=== PATIENT | female | born 1985 | race Caucasian/White ===

== ENCOUNTER → 2016-05-20 | Outpatient (CLI) | payer OTHER ==
[2016-05-20 14:56] LABS: BASO % 1.2 %; BASO ABS # 0.04 K/uL (0-0.2); COMPLETE YES; EOS % 0.9 %; HEMATOCRIT 42.4 % (37-47); IG% 0.3 %; LYMPH % 37.5 %; LYMPH ABS # 1.24 K/uL (1.2-3.4); MEAN CELL VOLUME 102.2 fL (80-100); MEAN CORPUSCULAR HEMOGLOBIN 34.7 pg (25-34); MEAN PLATELET VOLUME 9.8 fL (7.4-10.4); MONO % 12.1 %; PLATELET COUNT 237 K/uL (130-400); RED BLOOD COUNT 4.15 M/uL (4.2-5.4); WHITE BLOOD COUNT 3.31 K/uL (4.8-10.8)
[2016-05-20 15:12] LABS: ALB/GLOB RATIO 0.9 (0.9-2); ALKALINE PHOSPHATASE 45 U/L (45-117); ALT/SGPT 27 U/L (12-78); AST/SGOT 22 U/L (15-37); BLOOD UREA NITROGEN 13 mg/dl (7-18); CALCIUM 8.8 mg/dl (8.5-10.1); CARBON DIOXIDE 23 mmol/L (21-32); CHLORIDE 107 mmol/L (98-107); CHOLESTEROL 165 mg/dl (0-200); CHOLESTEROL/HDL RATIO 3.9; CREATININE 0.79 mg/dl (0.60-1.20); GLUCOSE 90 mg/dl (70-99); HDL CHOLESTEROL 42 mg/dl; LDL CHOLESTEROL CALCULATED 107 mg/dl; POTASSIUM 4.2 mmol/L (3.5-5.1); SODIUM 141 mmol/L (136-145); TRIGLYCERIDES 82 mg/dl (0-150); VERY LOW DENSITY LIPOPROT CALC 16 mg/dl
== END | disposition home or self-care (01) ==
LOC: C.LABSPEC 09:24
PROVIDERS: ATTEND Family Medicine
DX: Z00.00 Encounter for general adult medical examination without abnormal findings (principal)

== ENCOUNTER → 2016-10-25 | Outpatient (CLI) | payer OTHER ==
[2016-10-25 14:33] LABS: BASO % 0.8 %; BASO ABS # 0.03 K/uL (0-0.2); COMPLETE YES; EOS % 1.7 %; HEMATOCRIT 45.1 % (37-47); LYMPH % 32.4 %; LYMPH ABS # 1.15 K/uL (1.2-3.4); MEAN CELL VOLUME 104.4 fL (80-100); MEAN CORPUSCULAR HEMOGLOBIN 35.2 pg (25-34); MEAN CORPUSCULAR HGB CONC 33.7 g/dl (32-36); MEAN PLATELET VOLUME 9.5 fL (7.4-10.4); MONO % 9.9 %; NEUT % 55.2 %; PLATELET COUNT 239 K/uL (130-400); RED BLOOD COUNT 4.32 M/uL (4.2-5.4); WHITE BLOOD COUNT 3.55 K/uL (4.8-10.8)
[2016-10-25 14:46] LABS: ALT/SGPT 26 U/L (12-78); BLOOD UREA NITROGEN 15 mg/dl (7-18); BUN/CREATININE RATIO 17.4 (10-20); CALCIUM 9.1 mg/dl (8.5-10.1); CARBON DIOXIDE 28 mmol/L (21-32); CHLORIDE 108 mmol/L (98-107); CHOLESTEROL 175 mg/dl (0-200); CREATININE 0.88 mg/dl (0.60-1.20); GLUCOSE 79 mg/dl (70-99); POTASSIUM 4.1 mmol/L (3.5-5.1); SODIUM 141 mmol/L (136-145); TRIGLYCERIDES 143 mg/dl (0-150); VERY LOW DENSITY LIPOPROT CALC 29 mg/dl
[2016-10-25 14:55] LABS: ALB/GLOB RATIO 0.9 (0.9-2); ALKALINE PHOSPHATASE 43 U/L (45-117); AST/SGOT 20 U/L (15-37); CHOLESTEROL/HDL RATIO 4.3; HDL CHOLESTEROL 41 mg/dl; LDL CHOLESTEROL CALCULATED 105 mg/dl
== END | disposition home or self-care (01) ==
LOC: C.LABSPEC 13:58
PROVIDERS: ATTEND Family Medicine
DX: R63.5 Abnormal weight gain (principal); Q90.9 Down syndrome, unspecified

== ENCOUNTER 2017-06-08 14:19 | Observation (INO) | payer OTHER ==
[~2017-06-08] VITALS: Ht 160 cm; Wt 111.2 kg
[2017-06-08] MEDS ORDERED: SODIUM CHLORIDE 0.9% 1000ML 1,000 ML IV STA (15:01)
--- NOTE | 2017-06-08 15:03 | EMERGENCY ROOM VISIT NOTE ---
History Report prepared by Zenia: Davon Mayorga Under the Supervision of: Dr. Markus Pritchett M.D. First contact with patient: 14:53 Chief Complaint: OTHER COMPLAINT Stated Complaint: ACTED LIKE PASSING OUT, BROKE OUT IN SWEAT, EXTREM History of Present Illness The patient is a 31 year old female who presents to the Emergency Room with complaints of multiple episodes of syncope occurring today. Per mom, the patient was walking down the stairs today and had an episode that seemed like she was going to pass out. She notes that the patient made it about [address] stairs, and then leaned over and became "dazed." She reports that the patient was not able to respond immediately following her initial episode. She states that the patient also became SOB and diaphoretic. She notes that the patient then drank some water and sat down for 20 minutes before feeling better. She reports that the patient then went back up the stairs and had a similar episode. She states that the patient had similar symptoms a year ago. The patient notes that she does not remember passing out. She also complains of a headache but denies any nausea, vomiting, diarrhea, and fever. Per mom, the patient originally said that she had chest pain but points to her head when asked where the pain is. She reports that the patient has a history of down syndrome but does not have a history of seizures. Source of History: patient, parent Onset: today Position: head Quality: other (LOC) Timing: other (multiple episodes) Associated Symptoms: + headache, No fevers, No nausea, No vomiting, No diarrhea Note: Per mom, the patient was in a "daze" and was not able to respond during her episodes. The patient states that she does not remember losing consciousness. Review of Systems See HPI for pertinent positives & negatives. A total of 10 systems reviewed and were otherwise negative. Past Medical & Surgical Medical Problems: (1) Down syndrome Family History No pertinent family history stated. Social History Smoking Status: Never Smoker Marital Status: single Housing Status: lives with family Occupation Status: unemployed Current/Historical Medications No Active Prescriptions or Reported Meds Allergies Coded Allergies: NO KNOWN DRUG ALLERGIES (Verified Allergy, Unknown, ., 06/08/17) Physical Exam Vital Signs Date Time Temp Pulse Resp B/P (MAP) Pulse Ox O2 Delivery O2 Flow Rate FiO2 06/08/17 18:33 107 18 111/83 96 Room Air 06/08/17 17:32 64 116/79 78 107/85 87 106/72 06/08/17 17:32 64 20 116/79 06/08/17 16:13 71 06/08/17 15:21 98 Room Air 06/08/17 15:21 98 Room Air 06/08/17 14:41 37.0 79 18 111/63 98 Room Air Physical Exam GENERAL: Awake, alert, well-appearing, in no acute distress HENT: Normocephalic, atraumatic. Oropharynx unremarkable. EYES: Normal conjunctiva. Sclera non-icteric. NECK: Supple. No nuchal rigidity. FROM. No JVD. RESPIRATORY: Clear to auscultation. CARDIAC: Regular rate, normal rhythm. Extremities warm and well perfused. Pulses equal. ABDOMEN: Soft, non-distended. No tenderness to palpation. No rebound or guarding. No masses. RECTAL: Deferred. MUSCULOSKELETAL: Chest examination reveals no tenderness. The back is symmetrical on inspection without obvious abnormality. There is no CVA tenderness to palpation. No joint edema. LOWER EXTREMITIES: Calves are equal size bilaterally and non-tender. No edema. No discoloration. NEURO: Normal sensorium. No sensory or motor deficits noted. SKIN: No rash or jaundice noted. Medical Decision & Procedures ER Provider Diagnostic Interpretation: Radiology results as stated below per my review and radiologist interpretation: CHEST ONE VIEW PORTABLE FINDINGS: Cardiomediastinal silhouette top normal in size. Bronchial wall thickening suggested. Mildly low lung volumes with hypoventilatory changes. No other focal opacity. No large effusion or pneumothorax. Osseous structures normal. Upper abdomen normal. IMPRESSION: 1. Mildly low lung volumes with hypoventilatory changes. 2. Bronchial wall thickening could suggest bronchitis or reactive airways. Electronically signed by: Geraldo Mcgraw M.D. 06/08/2017 3:47 PM CHEST COMBO ANGIO DISSECTION FINDINGS: Victims Advocate Clerk/Specialist topogram: Unremarkable. Vasculature: The study is suboptimal for the assessment of the aorta secondary to respiratory and cardiac motion artifact. Precontrast imaging demonstrates no evidence of intramural hematoma. Postcontrast imaging demonstrates no evidence of dissection, penetrating ulcer, or aneurysm. Four-vessel aortic arch with patent origins of the branch vessels Allowing for timing of the contrast bolus, no gross evidence of a filling defect within the pulmonary arteries to suggest embolus. Main pulmonary artery is not enlarged. No flattening of the interventricular septum. No intracardiac filling defect. No reflux of contrast into the hepatic veins. Remaining chest: On soft tissue windows, normal thyroid and thoracic inlet. No axillary, supraclavicular, hilar, or mediastinal lymphadenopathy. Normal heart size. No pericardial or pleural effusion. Upper abdomen normal. On lung windows, allowing for extensive respiratory motion artifact, extensive mosaic attenuation at the lung bases suggests small airways disease. No focal nodule or infiltrate. Central airways patent. On bone windows, normal osseous structures. IMPRESSION: 1. Allowing for significant respiratory and cardiac motion artifact, no evidence of acute aortic injury. 2. Extensive small airways disease at the lung bases. Electronically signed by: Geraldo Mcgraw M.D. 06/08/2017 5:32 PM Laboratory Results 06/08/17 15:50 Red Blood Count 4.35, Mean Corpuscular Volume 103.4, Mean Corpuscular Hemoglobin 34.9, Mean Corpuscular Hemoglobin Concent 33.8, Mean Platelet Volume 9.6, Neutrophils (%) (Auto) 71.1, Lymphocytes (%) (Auto) 20.3, Monocytes (%) ( Auto) 6.5, Eosinophils (%) (Auto) 1.4, Basophils (%) (Auto) 0.7, Neutrophils # ( Auto) 3.96, Lymphocytes # (Auto) 1.13, Monocytes # (Auto) 0.36, Eosinophils # ( Auto) 0.08, Basophils # (Auto) 0.04 06/08/17 15:50 Test 06/08/17 15:50 06/08/17 16:20 06/08/17 18:25 White Blood Count 5.57 K/uL (4.8-10.8) Red Blood Count 4.35 M/uL (4.2-5.4) Hemoglobin 15.2 g/dL (12.0-16.0) Hematocrit 45.0 % (37-47) Mean Corpuscular Volume 103.4 fL (80-100) Mean Corpuscular Hemoglobin 34.9 pg (25-34) Mean Corpuscular Hemoglobin Concent 33.8 g/dl (32-36) Platelet Count 209 K/uL (130-400) Mean Platelet Volume 9.6 fL (7.4-10.4) Neutrophils (%) (Auto) 71.1 % Lymphocytes (%) (Auto) 20.3 % Monocytes (%) (Auto) 6.5 % Eosinophils (%) (Auto) 1.4 % Basophils (%) (Auto) 0.7 % Neutrophils # (Auto) 3.96 K/uL (1.4-6.5) Lymphocytes # (Auto) 1.13 K/uL (1.2-3.4) Monocytes # (Auto) 0.36 K/uL (0.11-0.59) Eosinophils # (Auto) 0.08 K/uL (0-0.5) Basophils # (Auto) 0.04 K/uL (0-0.2) RDW Standard Deviation 51.2 fL (36.4-46.3) RDW Coefficient of Variation 13.6 % (11.5-14.5) Immature Granulocyte % (Auto) 0.0 % Immature Granulocyte # (Auto) 0.00 K/uL (0.00-0.02) Anion Gap 9.0 mmol/L (3-11) Est Creatinine Clear Calc Drug Dose 103.1 ml/min Estimated GFR () 93.2 Estimated GFR (Non- 80.4 BUN/Creatinine Ratio 15.3 (10-20) Calcium Level 8.3 mg/dl (8.5-10.1) Magnesium Level 2.0 mg/dl (1.8-2.4) Total Bilirubin 0.4 mg/dl (0.2-1) Direct Bilirubin < 0.1 mg/dl (0-0.2) Aspartate Amino Transf (AST/SGOT) 20 U/L (15-37) Alanine Aminotransferase (ALT/SGPT) 33 U/L (12-78) Alkaline Phosphatase 47 U/L (45-117) Creatine Kinase MB < 0.5 ng/ml (0.5-3.6) Creatine Kinase MB Ratio (0-3.0) Troponin I < 0.015 ng/ml (0-0.045) Total Protein 7.5 gm/dl (6.4-8.2) Albumin 3.3 gm/dl (3.4-5.0) Bedside Troponin I 0.030 ng/ml (0-0.045) Labs reviewed by ED physician. Medications Administered Medications (Trade) Dose Ordered Sig/Bharath Route Start Time Stop Time Status Last Admin Dose Admin Sodium Chloride 1,000 ml @ 999 mls/hr Q1H1M STAT IV 06/08/17 15:01 06/08/17 16:01 DC 06/08/17 16:23 999 MLS/HR Albuterol Sulfate (Ventolin 0.083% 2.5MG/3ML Neb) 2.5 mg NOW STAT INH 06/08/17 15:50 06/08/17 15:51 DC 06/08/17 16:38 2.5 MG Albuterol Sulfate (Ventolin 0.083% 2.5MG/3ML Neb) 2.5 mg NOW STAT INH 06/08/17 17:41 06/08/17 17:42 DC 06/08/17 17:52 2.5 MG ECG Per My Interpretation Indication: syncope Rate (beats per minute): 66 Rhythm: normal sinus Findings: no acute ischemic change, no ectopy, other (Early repolarization) ED Course 1455: Past medical records reviewed. The patient was evaluated in room B11. A complete history and physical examination was performed. 1501: Sodium Chloride 1000 ml @ 999 mls/hr 1550: Albuterol Sulfate 2.5mg INH 1608: [place] [facility] [place] suggests to have an echo done. 1741: Albuterol Sulfate 2.5mg INH 1816: Upon reexamination the patient is stable. I discussed results and treatment plan with the patient. She and her mother verbalize agreement and understanding. I spoke with [place]. Andrews [place] [facility] [place]. The patient will be evaluated for further management. Medical Decision Differential diagnosis: Etiologies such as vasovagal event, infection, hypoglycemia, electrolyte abnormalities, cardiac sources, intracerebral event, toxicologic, neurologic, as well as others were entertained. This is a 31-year-old female who presents the emergency department complaining of passing out 3 times. Patient has a history of Down syndrome and has had an episode previously where she was walking downstairs and passed out. Today she had 3 episodes back to back. Patient and mother report that she is eating normally today. The patient's original EKG was concerning for STEMI and it was difficult to ascertain if the patient was having chest pain as she reports chest pain but points to her head. Because of this I did contact cardiology who had a stat echo performed. There is no evidence of abnormal wall abnormality. The patient also had a CAT scan dissection study which did not show any evidence of dissection. I did discuss my case with the patient's mother who asked that the patient be admitted at least for observation. Did discuss the case with the hospitalist service. Medication Reconcilliation Current Medication List: was personally reviewed by me Blood Pressure Screening Patient's blood pressure: Normal blood pressure Blood pressure disposition: Did not require urgent referral Consults Time Called: 1604 Consulting Physician: Dr. Gary Luis CardiologyJOSSELIN Returned Call: 1608 I spoke to JOSSELIN Amador. He suggests to have an echo done. Additional Consults: Time Called: 1814 Consulted Physician: JOSSELIN Donovan Returned Call: 1816 Additional Comments: I discussed the patient's case with JOSSELIN Maki, He has agreed to evaluate the patient for further management and care. Impression Primary Impression: Syncope Scribe Attestation The scribe's documentation has been prepared under my direction and personally reviewed by me in its entirety. I confirm that the note above accurately reflects all work, treatment, procedures, and medical decision making performed by me. Departure Information Dispostion Being Evaluated By Hospitalist Prescriptions No Active Prescriptions or Reported Meds Referrals [facility]on [facility]. [facility] ([facility] Patient Instructions My [facility] Problem Qualifiers Primary Impression: Syncope Syncope type: unspecified Qualified Codes: R55 - Syncope and collapse
--- NOTE | 2017-06-08 15:48 | DIAGNOSTIC IMAGING REPORT ---
CHEST ONE VIEW PORTABLE CLINICAL HISTORY: 31 years-old Female presenting with Pt c/o SOB. TECHNIQUE: Portable upright AP view of the chest was obtained. COMPARISON: None. FINDINGS: Cardiomediastinal silhouette top normal in size. Bronchial wall thickening suggested. Mildly low lung volumes with hypoventilatory changes. No other focal opacity. No large effusion or pneumothorax. Osseous structures normal. Upper abdomen normal. IMPRESSION: 1. Mildly low lung volumes with hypoventilatory changes. 2. Bronchial wall thickening could suggest bronchitis or reactive airways. Electronically signed by: Geraldo Mcgraw M.D. 06/08/2017 3:47 PM Dictated Date/Time: 06/08/2017 3:46 PM
[2017-06-08] MEDS ORDERED: ALBUTEROL 0.083% NEBU SOLN 3 ML VIAL INH STA ×3 (15:50→19:48)
[2017-06-08 16:08] LABS: BASO % 0.7 %; BASO ABS # 0.04 K/uL (0-0.2); EOS % 1.4 %; EOS ABS # 0.08 K/uL (0-0.5); HEMOGLOBIN 15.2 g/dL (12.0-16.0); LYMPH % 20.3 %; LYMPH ABS # 1.13 K/uL (1.2-3.4); MEAN CELL VOLUME 103.4 fL (80-100); MEAN CORPUSCULAR HEMOGLOBIN 34.9 pg (25-34); MEAN CORPUSCULAR HGB CONC 33.8 g/dl (32-36); MEAN PLATELET VOLUME 9.6 fL (7.4-10.4); MONO % 6.5 %; MONO ABS # 0.36 K/uL (0.11-0.59); NEUT % 71.1 %; NEUT ABS # 3.96 K/uL (1.4-6.5); PLATELET COUNT 209 K/uL (130-400); RED CELL DISTRIBUTION WIDTH CV 13.6 % (11.5-14.5); RED CELL DISTRIBUTION WIDTH SD 51.2 fL (36.4-46.3); WHITE BLOOD COUNT 5.57 K/uL (4.8-10.8)
[2017-06-08] MEDS ORDERED: OPTIRAY 320 IV PRN (16:15)
[2017-06-08 16:46] LABS: ALBUMIN 3.3 gm/dl (3.4-5.0); ALKALINE PHOSPHATASE 47 U/L (45-117); ALT/SGPT 33 U/L (12-78); BLOOD UREA NITROGEN 15 mg/dl (7-18); CALCIUM 8.3 mg/dl (8.5-10.1); CARBON DIOXIDE 26 mmol/L (21-32); CKMB < 0.5 ng/ml (0.5-3.6); CREATININE 0.95 mg/dl (0.60-1.20); GLUCOSE 78 mg/dl (70-99); SODIUM 141 mmol/L (136-145); TOTAL PROTEIN 7.5 gm/dl (6.4-8.2)
[2017-06-08 16:47] LABS: AST/SGOT 20 U/L (15-37); POTASSIUM 4.4 mmol/L (3.5-5.1)
--- NOTE | 2017-06-08 17:33 | DIAGNOSTIC IMAGING REPORT ---
CHEST COMBO ANGIO DISSECTION CLINICAL HISTORY: 31 years-old Female presenting with ^Pt c/o chest pain. TECHNIQUE: Multidetector CT angiography of the chest was performed before and after the administration of intravenous contrast. 3-D volumetric and/or maximum intensity projection (MIP) images were subsequently reconstructed for review. IV contrast: 117 mL of Optiray 320. A dose lowering technique was used consistent with the principles of ALARA (as low as reasonably achievable). COMPARISON: None. CT DOSE (mGy.cm): The estimated cumulative dose is 1350.08 mGy.cm. FINDINGS: Pattern Generator Operator topogram: Unremarkable. Vasculature: The study is suboptimal for the assessment of the aorta secondary to respiratory and cardiac motion artifact. Precontrast imaging demonstrates no evidence of intramural hematoma. Postcontrast imaging demonstrates no evidence of dissection, penetrating ulcer, or aneurysm. Four-vessel aortic arch with patent origins of the branch vessels Allowing for timing of the contrast bolus, no gross evidence of a filling defect within the pulmonary arteries to suggest embolus. Main pulmonary artery is not enlarged. No flattening of the interventricular septum. No intracardiac filling defect. No reflux of contrast into the hepatic veins. Remaining chest: On soft tissue windows, normal thyroid and thoracic inlet. No axillary, supraclavicular, hilar, or mediastinal lymphadenopathy. Normal heart size. No pericardial or pleural effusion. Upper abdomen normal. On lung windows, allowing for extensive respiratory motion artifact, extensive mosaic attenuation at the lung bases suggests small airways disease. No focal nodule or infiltrate. Central airways patent. On bone windows, normal osseous structures. IMPRESSION: 1. Allowing for significant respiratory and cardiac motion artifact, no evidence of acute aortic injury. 2. Extensive small airways disease at the lung bases. Electronically signed by: Geraldo Mcgraw M.D. 06/08/2017 5:32 PM Dictated Date/Time: 06/08/2017 5:28 PM
--- NOTE | 2017-06-08 17:56 | ECHOCARDIOGRAM REPORT ---
*NOTICE TO RECEIVING [employer] This information is strictly Confidential and protected under [place] law. [place] law prohibits you from making any further disclosure of this information unless further disclosure is expressly permitted by the written consent of the person to whom it pertains or is authorized by law. A general authorization for the release of medical or other information is not sufficient for this purpose. Hospital accepts no responsibility if the information is made available to any other person, INCLUDING THE PATIENT. Interpretation Summary * Conclusions -- * Left ventricular systolic function is normal. * Normal diastolic function * No evidence of dissection in the aortic root or image segments of the aortic arch * No significant valvular disease Procedure Details * A contrast injection of Definity was performed to improve assessment of LV function. * Contrast was injected into an intravenous site in the left arm. * One vial of Definity ultrasound contrast was diluted in normal saline to a total volume of 10 ml. A total of '2' ml of solution was administered during imaging. * Lot # [id number] of Definity utilized for procedure. * Expiration date MAY 05. * The attending nurse who injected the contrast agent was LINDA SAAB. Left Ventricle * The left ventricle is normal in size. * There is normal left ventricular wall thickness. * Left ventricular systolic function is normal. * Ejection Fraction = 60-65%. * Normal diastolic function * The left ventricular wall motion is normal. Right Ventricle * The right ventricle is normal in size and function. Atria * The left atrial size is normal. * Right atrial size is normal. Mitral Valve * The mitral valve is grossly normal. * There is no mitral regurgitation noted. Tricuspid Valve * The tricuspid valve is not well visualized, but is grossly normal. * No tricuspid regurgitation. Aortic Valve * The aortic valve is normal in structure and function. * The aortic valve is trileaflet. * No hemodynamically significant valvular aortic stenosis. * There is no significant aortic regurgitation. Pulmonic Valve * The pulmonic valve is not well visualized. Great Vessels * The aortic root is normal size. * No evidence of dissection in the aortic root or image segments of the aortic arch Pericardium/Pleural * There is no pericardial effusion. Great Vessels * Normal inferior vena cava diameter and respiratory variation suggests normal central venous pressure. MMode 2D Measurements and Calculations IVSd 0.92 cm IVSs 1.2 cm LVIDd 3.8 cm LVIDs 2.4 cm LVPWd 0.84 cm LVPWs 1.3 cm IVS/LVPW 1.1 FS 35.9 % EDV(Teich) 60.8 ml ESV(Teich) 20.6 ml EF(Teich) 66.2 % EDV(cubed) 53.6 ml ESV(cubed) 14.1 ml EF(cubed) 73.6 % % IVS thick 25.7 % % LVPW thick 54.8 % LV mass(C)d 96.6 grams LV mass(C)dI 46.1 grams/m\S\2 LV mass(C)s 85.0 grams LV mass(C)sI 40.5 grams/m\S\2 SV(Teich) 40.3 ml SI(Teich) 19.2 ml/m\S\2 SV(cubed) 39.5 ml SI(cubed) 18.8 ml/m\S\2 Ao root diam 2.5 cm Ao root area 5.1 cm\S\2 LA dimension 2.8 cm LA/Ao 1.1 LVAd ap4 23.8 cm\S\2 LVLd ap4 8.1 cm EDV(MOD-sp4) 56.8 ml EDV(sp4-el) 59.5 ml LVAs ap4 13.3 cm\S\2 LVLs ap4 6.4 cm ESV(MOD-sp4) 22.7 ml ESV(sp4-el) 23.7 ml EF(MOD-sp4) 60.0 % EF(sp4-el) 60.2 % SV(MOD-sp4) 34.1 ml SI(MOD-sp4) 16.3 ml/m\S\2 SV(sp4-el) 35.9 ml SI(sp4-el) 17.1 ml/m\S\2 Doppler Measurements and Calculations MV E max rodriguez 127.3 cm/sec MV A max rodriguez 90.1 cm/sec MV E/A 1.4 MV dec time 0.20 sec Ao V2 max 132.6 cm/sec Ao max PG 7.0 mmHg Ao max PG (full) 3.8 mmHg LV V1 max PG 3.2 mmHg LV V1 max 89.4 cm/sec
[2017-06-08 19:01] LABS: INFLUENZA B ANTIGEN Neg for Influ B (NEG)
[2017-06-08] MEDS ORDERED: ACETAMINOPHEN 325 MG TAB PO PRN (20:00)
[2017-06-08] MEDS ORDERED: ONDANSETRON INJ 2 MG/ML 2 ML VIAL IV PRN (20:00)
[2017-06-08] MEDS ORDERED: NITROGLYCERIN 0.4 MG SL PER TAB CHARGE SL PRN (20:00)
[2017-06-08] MEDS ORDERED: ALUMINUM/MAGNESIUM/SIMETH (MAALOX MAX) 30 ML UDC PO PRN (20:00)
[2017-06-08] MEDS ORDERED: MAGNESIUM HYDROXIDE SUSP 30 ML UDC PO PRN (20:00)
[2017-06-08] MEDS ORDERED: ZOLPIDEM TARTRATE 5 MG TAB PO PRN ×2 (20:00)
[2017-06-08] MEDS ORDERED: POLYETHYLENE (MIRALAX) 17 GM PACK PO PRN (20:00)
[2017-06-08] MEDS ORDERED: IV FLUIDS COMPLETED PRN (20:15)
[2017-06-08 20:48] LABS: PTT PATIENT 25.7 SECONDS (21.0-31.0)
[2017-06-08 20:50] VITALS: BP 142/82; PULSE 99; TEMP 36.4; O2SAT 100; Ht 160 cm; Wt 111.2 kg
[2017-06-08] MEDS ORDERED: CYANOCOBALAMIN 500 MCG TAB (VIT B-12) PO ONE (20:54)
[2017-06-08] MEDS ORDERED: ALBUT/IPRATROP 3MG/0.5MG NEB 3 ML VIAL INH PRN (21:00)
[2017-06-08] MEDS ORDERED: ENOXAPARIN 30 MG/0.3 ML SYR SC SCH (21:00)
--- NOTE | 2017-06-08 21:02 | History and Physical ---
History & Physical Date & Time of Service: Jun 08, 2017 at 20:30 Chief Complaint: Acted Like Passing Out, Broke Out In Sweat, Extrem Primary Care Physician: Davon Mario M.D. ([facility]) History of Present Illness Source: patient, family Pt is a pleasant 31F with a PMHx of Down's Syndrome. She is accompanied by her mother who is the chief historian. Per mom pt was shopping in an [employer] store in [place] today. In the store on the way down the stairs the patient paused, became verbally unresponsive while standing on the 7th or 8th step and was unable to move to commands for a few minutes. There was no fall or LOC. The patient with her moms assistance eventually made it down the stairs and got some water. She had another episode in one of the bedrooms upstairs around 30 minutes after the first event. There was no LOC or falls during the second episode. Per mom, pt has been generally well. Pt lives with mom and mom is around patient 24 hours of the day. There have been no coughs, fevers, chills, chest pains or other pains recently. Mom said that the pt had an episode like this approximately one year ago. At that time she took her daughter to the [place] ER and they found that she was hypoxic. Patient denies any issues however per mom pt is an unreliable historian because pt's grandmother recently in the hospital and as a result the patient will never present a health complaint to a physician for fear that she may succumb to a similar fate. Nonetheless, the patient states that she feels fine. PMHx: Down's Syndrome but she has been relatively healthy her entire life according to her mom. Meds: None. SHX: Lives with mom, non smoker. 4 older siblings. Lives in [place]. Past Medical/Surgical History Medical Problems: (1) Bronchitis (2) Down syndrome Family History Noncontributory Social History Smoking Status: Never Smoker Smokeless Tobacco Use: No Alcohol Use: none Drug Use: none Marital Status: single Housing status: lives with family Occupational Status: unemployed Immunizations History of Influenza Vaccine: Unknown History of Tetanus Vaccine?: Unknown History of Pneumococcal: Unknown History of Hepatitis B Vaccine: Unknown Multi-Drug Resistant Organisms History of MDRO: No Allergies Coded Allergies: NO KNOWN DRUG ALLERGIES (Verified Allergy, Unknown, ., 06/08/17) Home Medications No Active Prescriptions or Reported Meds Review of Systems Constitutional: No fever, No chills, No weight loss Respiratory: No cough, No sputum, No shortness of breath Cardiovascular: No chest pain Abdomen: No pain, No nausea, No vomiting, No diarrhea, No constipation Musculoskeletal: No joint pain Genitourinary - Female: No dysuria Endocrine: No fatigue Physical Exam Vital Signs Date Time Temp Pulse Resp B/P (MAP) Pulse Ox O2 Delivery O2 Flow Rate FiO2 06/08/17 20:13 77 20 128/81 100 06/08/17 18:33 107 18 111/83 96 Room Air 06/08/17 17:32 64 116/79 78 107/85 87 106/72 06/08/17 17:32 64 20 116/79 06/08/17 16:13 71 06/08/17 15:21 98 Room Air 06/08/17 15:21 98 Room Air 06/08/17 14:41 37.0 79 18 111/63 98 Room Air General Appearance: WD/WN, + obese Head: normocephalic Eyes: normal inspection, PERRL, EOMI ENT: normal ENT inspection Neck: supple, no adenopathy Respiratory/Chest: chest non-tender, lungs clear, normal breath sounds, no respiratory distress, + pertinent finding (did not appreciate any cracking in the lungs) Cardiovascular: regular rate, rhythm, no edema, no gallop, no JVD, no murmur, normal peripheral pulses Abdomen/GI: normal bowel sounds, non tender, soft, no organomegaly Back: normal inspection, no CVA tenderness Extremities/Musculoskelatal: normal inspection, no calf tenderness, no pedal edema, + pertinent finding (pt has difficulty following commands due to unlerying Trisomy 21) Neurologic/Psych: committee member II-XII nml as tested, no motor/sensory deficits, alert, normal mood/affect, normal reflexes, oriented x 3 Skin: + pertinent finding (erythematous rash on cheeks bilaterally (chronic)) Diagnostics Laboratory Results Results Past 24 Hours Test 06/08/17 15:50 06/08/17 16:20 06/08/17 18:25 Range/Units White Blood Count 5.57 4.8-10.8 K/uL Red Blood Count 4.35 4.2-5.4 M/uL Hemoglobin 15.2 12.0-16.0 g/dL Hematocrit 45.0 37-47 % Mean Corpuscular Volume 103.4 80-100 fL Mean Corpuscular Hemoglobin 34.9 25-34 pg Mean Corpuscular Hemoglobin Concent 33.8 32-36 g/dl Platelet Count 209 130-400 K/uL Mean Platelet Volume 9.6 7.4-10.4 fL Neutrophils (%) (Auto) 71.1 % Lymphocytes (%) (Auto) 20.3 % Monocytes (%) (Auto) 6.5 % Eosinophils (%) (Auto) 1.4 % Basophils (%) (Auto) 0.7 % Neutrophils # (Auto) 3.96 1.4-6.5 K/uL Lymphocytes # (Auto) 1.13 1.2-3.4 K/uL Monocytes # (Auto) 0.36 0.11-0.59 K/uL Eosinophils # (Auto) 0.08 0-0.5 K/uL Basophils # (Auto) 0.04 0-0.2 K/uL RDW Standard Deviation 51.2 36.4-46.3 fL RDW Coefficient of Variation 13.6 11.5-14.5 % Immature Granulocyte % (Auto) 0.0 % Immature Granulocyte # (Auto) 0.00 0.00-0.02 K/uL Sodium Level 141 136-145 mmol/L Potassium Level 4.4 3.5-5.1 mmol/L Chloride Level 106 98-107 mmol/L Carbon Dioxide Level 26 21-32 mmol/L Anion Gap 9.0 3-11 mmol/L Blood Urea Nitrogen 15 7-18 mg/dl Creatinine 0.95 0.60-1.20 mg/dl Est Creatinine Clear Calc Drug Dose 103.1 ml/min Estimated GFR () 93.2 Estimated GFR (Non- 80.4 BUN/Creatinine Ratio 15.3 10-20 Random Glucose 78 70-99 mg/dl Calcium Level 8.3 8.5-10.1 mg/dl Magnesium Level 2.0 1.8-2.4 mg/dl Total Bilirubin 0.4 0.2-1 mg/dl Direct Bilirubin < 0.1 0-0.2 mg/dl Aspartate Amino Transf (AST/SGOT) 20 15-37 U/L Alanine Aminotransferase (ALT/SGPT) 33 12-78 U/L Alkaline Phosphatase 47 45-117 U/L Creatine Kinase MB < 0.5 0.5-3.6 ng/ml Creatine Kinase MB Ratio 0-3.0 Troponin I < 0.015 0-0.045 ng/ml Total Protein 7.5 6.4-8.2 gm/dl Albumin 3.3 3.4-5.0 gm/dl Bedside Troponin I 0.030 0-0.045 ng/ml Influenza Type A Antigen Neg for Influ A NEG Influenza Type B Antigen Neg for Influ B NEG Diagnostic Radiology CHEST COMBO ANGIO DISSECTION CLINICAL HISTORY: 31 years-old Female presenting with ^Pt c/o chest pain. TECHNIQUE: Multidetector CT angiography of the chest was performed before and after the administration of intravenous contrast. 3-D volumetric and/or maximum intensity projection (MIP) images were subsequently reconstructed for review. IV contrast: 117 mL of Optiray 320. A dose lowering technique was used consistent with the principles of ALARA (as low as reasonably achievable). COMPARISON: None. CT DOSE (mGy.cm): The estimated cumulative dose is 1350.08 mGy.cm. FINDINGS: Short Story Writer topogram: Unremarkable. Vasculature: The study is suboptimal for the assessment of the aorta secondary to respiratory and cardiac motion artifact. Precontrast imaging demonstrates no evidence of intramural hematoma. Postcontrast imaging demonstrates no evidence of dissection, penetrating ulcer, or aneurysm. Four-vessel aortic arch with patent origins of the branch vessels Allowing for timing of the contrast bolus, no gross evidence of a filling defect within the pulmonary arteries to suggest embolus. Main pulmonary artery is not enlarged. No flattening of the interventricular septum. No intracardiac filling defect. No reflux of contrast into the hepatic veins. Remaining chest: On soft tissue windows, normal thyroid and thoracic inlet. No axillary, supraclavicular, hilar, or mediastinal lymphadenopathy. Normal heart size. No pericardial or pleural effusion. Upper abdomen normal. On lung windows, allowing for extensive respiratory motion artifact, extensive mosaic attenuation at the lung bases suggests small airways disease. No focal nodule or infiltrate. Central airways patent. On bone windows, normal osseous structures. IMPRESSION: 1. Allowing for significant respiratory and cardiac motion artifact, no evidence of acute aortic injury. 2. Extensive small airways disease at the lung bases. CHEST ONE VIEW PORTABLE CLINICAL HISTORY: 31 years-old Female presenting with Pt c/o SOB. TECHNIQUE: Portable upright AP view of the chest was obtained. COMPARISON: None. FINDINGS: Cardiomediastinal silhouette top normal in size. Bronchial wall thickening suggested. Mildly low lung volumes with hypoventilatory changes. No other focal opacity. No large effusion or pneumothorax. Osseous structures normal. Upper abdomen normal. IMPRESSION: 1. Mildly low lung volumes with hypoventilatory changes. 2. Bronchial wall thickening could suggest bronchitis or reactive airways. ECHOCARDIOGRAM * Left ventricular systolic function is normal. * Normal diastolic function * No evidence of dissection in the aortic root or image segments of the aortic arch * No significant valvular disease EKG Normal sinus rhythm Low voltage QRS Early repolarization Borderline ECG When compared with ECG of 08-JUN-2017 15:59, (unconfirmed) No significant change was found Impression Assessment and Plan 31F with a PMhx of Down's Syndrome. Admitted for unresponsive episode x 2. Pt is a poor historian. HPI comes from mom. Per mom, pt is back at baseline. Unresponsive Episode x 2 Pt appears to be back at baseline. Unknown etiology, cardiac vs neurologic. Father has h/o seizures. Pt has never had a seizure. Pt did get an echocardiogram which came back normal - ergo no structural heart disease. EKG reviewed and was normal. Will consult neurology. Will also trend Troponin. Observe on Telemetry. UA ordered and pending. Bronchitis No White cell count. Afebrile. No wheezing on exam. CT suggestive of bronchitis. Duonebs Q6H PRN for wheezing. Elevated MCV Unsure if related to above, B12 and folic acid levels ordered. Supplement if low. DVT Proph Lovenox SQ 30 units. DIET: Regular. FULL CODE Attending addendum: I have physically seen this patient, have supervised the medical residents activities, and agree with the H&P unless as otherwise noted. Assessment and Plan: Unresponsive episodes-- The patient will be admitted to telemetry for serial cardiac enzymes, serial EKG's, and cardiac rhythm monitoring. Neurochecks. Repeat CBC with differential, chemistry profile and magnesium level in a.m. Bronchitis-- Noted on CT. Patient is asymptomatic, but will have duo nebs to use as needed Level of Care Telemetry Advanced Directives Existing Advance Directive: No Existing Living Will: No Existing Power of Print Production Coordinator: No Resuscitation Status FULL RESUSCITATION VTE Prophylaxis VTE Risk Assessment Done? Y/N: Yes Risk Level: Moderate Given or contraindicated: SCD's Social Service Consult None Apply Resident Involvement: Resident Care Provided Care Provided: Adult Hospital Medicine
[2017-06-09] VITALS: BP 111/63; PULSE 86; TEMP 37.1; O2SAT 95
[2017-06-09 02:57] VITALS: BP 108/59; PULSE 71; TEMP 37.1; O2SAT 92
[2017-06-09 07:15] VITALS: BP 104/49; PULSE 74; TEMP 36.7; O2SAT 97
[2017-06-09] MEDS ORDERED: CYANOCOBALAMIN 500 MCG TAB (VIT B-12) PO SCH (09:00)
[2017-06-09 11:41] VITALS: BP 111/70; PULSE 78; TEMP 36.8; O2SAT 94
--- NOTE | 2017-06-09 12:13 | Neurology Consultation ---
Neurology Consultation Date of Consultation: Jun 09, 2017. Attending Physician: Mack Lim MD Primary Care Physician: Davon Mario M.D. ([facility]) Reason for Consultation: Consultation for unresponsive episodes History of Present Illness Source: patient, hospital records This is a 31-year-old female who presents for evaluation of 2 unresponsive episodes yesterday. Has had a similar episode a year ago. Most of the information is taken from her mother as the patient has intellectual disability from Down syndrome and sometimes difficult to express history and what she is feeling. Mother reports that the patient yesterday was going down stairs and suddenly stopped. Mother tried to ask her if anything was wrong, how she was feeling, or if anything hurt. The patient was unresponsive and did not respond back for about a minute. Afterwards she seemed to indicate that she was having a hard time catching her breath. Mother said that during the episode she seemed to be very sweaty. No complaints of chest pain. No focal neurological deficits such as weakness or numbness. No changes in her speech when she did speak. Mother did ask her if she felt dizzy at one point but mother is not certain that she knows what dizziness is. Patient denied any pain at the time. Mother reports that previously the patient has noted pain in her right hip but on requestioning denied any pain. She took the patient down stairs after the first episode and gave her water. Patient seemed to be doing better and when they walked upstairs she had a similar episode of unresponsiveness for about a minute and complaining of trouble catching her breath. Mother does note that the patient frequently has trouble laying flat due to feeling of not being able to catch her breath. No history of cardiac disease or strokes. No history of seizures. Review of systems otherwise unremarkable. Echocardiogram unremarkable. Past Medical/Surgical History Medical Problems: (1) Syncope Status: Acute Down syndrome with intellectual disability Family History Denies any family history of seizures. Reports that father was placed on Dilantin for about a year but it was unclear whether he had epilepsy or not. Social History Patient lives with her mother. She had able to feed herself and walk unassisted. Dependent on mother for many of her activities of daily living and supervision. No tobacco use, alcohol use, or illegal drug use. Smokeless Tobacco Use: No Alcohol Use: none Drug Use: none Marital Status: single Housing Status: lives with family Occupation Status: unemployed Allergies Coded Allergies: NO KNOWN DRUG ALLERGIES (Verified Allergy, Unknown, ., 06/08/17) Current Inpatient Medications Current Inpatient Medications Medications (Trade) Dose Ordered Sig/Bharath Route Start Time Stop Time Status Last Admin Dose Admin Ioversol (Optiray 320) 100 ml UD PRN IV 06/08/17 16:15 06/12/17 16:14 Enoxaparin Sodium (Lovenox Inj) 30 mg Q24H SC 06/08/17 21:00 07/08/17 20:59 Acetaminophen (Tylenol Tab) 650 mg Q4H PRN PO 06/08/17 20:00 07/08/17 19:59 Al Hydrox/Mg Hydrox/Simethicone (Maalox Max Susp) 15 ml Q4H PRN PO 06/08/17 20:00 07/08/17 19:59 Magnesium Hydroxide (Milk Of Magnesia Susp) 30 ml Q12H PRN PO 06/08/17 20:00 07/08/17 19:59 Zolpidem Tartrate (Ambien Tab) 5 mg HSZ PRN PO 06/08/17 20:00 07/08/17 19:59 Zolpidem Tartrate (Ambien Tab) 5 mg HSZ PRN PO 06/08/17 20:00 07/08/17 19:59 Ondansetron HCl (Zofran Inj) 4 mg Q6H PRN IV 06/08/17 20:00 07/08/17 19:59 Nitroglycerin (Nitrostat Tab) 0.4 mg UD PRN SL 06/08/17 20:00 07/08/17 19:59 Polyethylene (Miralax Powder Packet) 17 gm DAILY PRN PO 06/08/17 20:00 07/08/17 19:59 Miscellaneous (Iv Fluids Completed) 1 ea PRN PRN N/A 06/08/17 20:15 06/08/18 20:14 Albuterol/ Ipratropium (Duoneb) 3 ml Q6 PRN INH 06/08/17 21:00 07/08/17 20:59 Cyanocobalamin (Vitamin B-12 Tab) 500 mcg QAM PO 06/09/17 09:00 07/09/17 08:59 06/09/17 07:46 500 MCG Review of Systems Complete review of systems otherwise negative except for the above-noted in HPI. Physical Exam Vital Signs (Past 24 Hrs): Date Time Temp Pulse Resp B/P (MAP) Pulse Ox O2 Delivery O2 Flow Rate FiO2 06/09/17 11:41 36.8 78 20 111/70 (84) 94 Room Air 06/09/17 07:15 36.7 74 20 104/49 (67) 97 Room Air 06/09/17 04:07 Room Air 06/09/17 02:57 37.1 71 18 108/59 (75) 92 06/09/17 00:11 Room Air 06/09/17 00:00 37.1 86 16 111/63 (79) 95 06/08/17 20:50 36.4 99 18 142/82 100 Room Air 06/08/17 20:13 77 20 128/81 100 06/08/17 18:33 107 18 111/83 96 Room Air 06/08/17 17:32 64 116/79 78 107/85 87 106/72 06/08/17 17:32 64 20 116/79 06/08/17 16:13 71 06/08/17 15:21 98 Room Air 06/08/17 15:21 98 Room Air 06/08/17 14:41 37.0 79 18 111/63 98 Room Air Gen.: Patient is alert and oriented in no acute distress lying in bed Heart: Regular rate and rhythm Extremities: No gross deformities or rashes noted Neurological examination: Mental status: Patient is alert and oriented to person only. Able to give some subjective history. Attention concentration normal for the situation. Remote and recent memory impaired Speech is fluent without any dysarthria or aphasia noted Cranial nerves: Funduscopic examination was difficult to visualize. Pupils equally round and reactive to light. Extraocular muscles intact without nystagmus. No facial asymmetry noted. Facial sensation intact. Tongue midline. Good palatal elevation. Good shoulder shrug bilaterally. Hearing grossly intact voice. Strength: 5/5 both proximal and distal in all extremities .Tone is normal. Sensation: Grossly intact to light touch in all extremities Deep tendon reflexes: +2 in bilateral biceps and patellar. Toes are downgoing to plantar stimulation bilaterally Coordination: Patient has good finger to nose without dysmetria. Station within the bed is normal. Laboratory Results Past 24 Hours: 06/08/17 15:50 Red Blood Count 4.35, Mean Corpuscular Volume 103.4, Mean Corpuscular Hemoglobin 34.9, Mean Corpuscular Hemoglobin Concent 33.8, Mean Platelet Volume 9.6, Neutrophils (%) (Auto) 71.1, Lymphocytes (%) (Auto) 20.3, Monocytes (%) ( Auto) 6.5, Eosinophils (%) (Auto) 1.4, Basophils (%) (Auto) 0.7, Neutrophils # ( Auto) 3.96, Lymphocytes # (Auto) 1.13, Monocytes # (Auto) 0.36, Eosinophils # ( Auto) 0.08, Basophils # (Auto) 0.04 06/08/17 15:50 Test 06/08/17 15:50 06/08/17 16:20 06/08/17 18:25 06/09/17 01:53 White Blood Count 5.57 K/uL (4.8-10.8) Red Blood Count 4.35 M/uL (4.2-5.4) Hemoglobin 15.2 g/dL (12.0-16.0) Hematocrit 45.0 % (37-47) Mean Corpuscular Volume 103.4 fL (80-100) Mean Corpuscular Hemoglobin 34.9 pg (25-34) Mean Corpuscular Hemoglobin Concent 33.8 g/dl (32-36) Platelet Count 209 K/uL (130-400) Mean Platelet Volume 9.6 fL (7.4-10.4) Neutrophils (%) (Auto) 71.1 % Lymphocytes (%) (Auto) 20.3 % Monocytes (%) (Auto) 6.5 % Eosinophils (%) (Auto) 1.4 % Basophils (%) (Auto) 0.7 % Neutrophils # (Auto) 3.96 K/uL (1.4-6.5) Lymphocytes # (Auto) 1.13 K/uL (1.2-3.4) Monocytes # (Auto) 0.36 K/uL (0.11-0.59) Eosinophils # (Auto) 0.08 K/uL (0-0.5) Basophils # (Auto) 0.04 K/uL (0-0.2) RDW Standard Deviation 51.2 fL (36.4-46.3) RDW Coefficient of Variation 13.6 % (11.5-14.5) Immature Granulocyte % (Auto) 0.0 % Immature Granulocyte # (Auto) 0.00 K/uL (0.00-0.02) Prothrombin Time 10.2 SECONDS (9.0-12.0) Prothromb Time International Ratio 1.0 (0.9-1.1) Activated Partial Thromboplast Time 25.7 SECONDS (21.0-31.0) Partial Thromboplastin Ratio 1.0 Anion Gap 9.0 mmol/L (3-11) Est Creatinine Clear Calc Drug Dose 103.1 ml/min Estimated GFR () 93.2 Estimated GFR (Non- 80.4 BUN/Creatinine Ratio 15.3 (10-20) Calcium Level 8.3 mg/dl (8.5-10.1) Magnesium Level 2.0 mg/dl (1.8-2.4) Total Bilirubin 0.4 mg/dl (0.2-1) Direct Bilirubin < 0.1 mg/dl (0-0.2) Aspartate Amino Transf (AST/SGOT) 20 U/L (15-37) Alanine Aminotransferase (ALT/SGPT) 33 U/L (12-78) Alkaline Phosphatase 47 U/L (45-117) Creatine Kinase MB < 0.5 ng/ml (0.5-3.6) Creatine Kinase MB Ratio (0-3.0) Total Protein 7.5 gm/dl (6.4-8.2) Albumin 3.3 gm/dl (3.4-5.0) Bedside Troponin I 0.030 ng/ml (0-0.045) Influenza Type A Antigen Neg for Influ A (NEG) Influenza Type B Antigen Neg for Influ B (NEG) Vitamin B12 Level 315 pg/mL (211-911) Folate 11.25 ng/mL (>5.38) Test 06/09/17 07:33 06/09/17 07:43 Troponin I < 0.015 ng/ml (0-0.045) C-Reactive Protein 0.47 mg/dl (0-0.29) Erythrocyte Sedimentation Rate 9 mm/hr (0-21) Impression This is a 31-year-old female with 2 episodes yesterday and one episode a year ago of brief unresponsiveness with possibly associated shortness of breath. Mother also reports sweating during 1 of the episodes which could represent diaphoresis. Overall suspicion for seizure or stroke is low. More likely etiology could be stemming from a pulmonary or cardiac etiology with complaints of shortness of breath and diaphoresis. Plan I ordered an EEG this morning which was reviewed by myself and normal. Could consider neuroimaging with a CT or MRI of the brain in the future if no pulmonary or cardiac causes found. Recommend following up with cardiology regarding cardiac evaluation and would recommend a pulmonary evaluation (could reasonably be done as an outpatient) with her complaints of intermittent trouble "catching her breath" and trouble laying flat. If the patient continues to have unresponsive episodes with no clear cardiac or pulmonary cause, could follow-up in the neurology clinic at a later date for reevaluation of possible seizure etiology and a 24 hour ambulatory EEG. Thank you for allowing me to participate in this patient's care. If there is any questions or concerns, feel free to call/page me.
--- NOTE | 2017-06-09 12:16 | EEG Procedure Note ---
EEG Procedure Note Date of Service Jun 09, 2017. Start / End Times Start Time: 9:00am End Time: 9:20 AM Referring Physician Angelina Hudson History This is a 31-year-old female who presents with unresponsive episodes. EEG for further evaluation of possible seizure etiology. Home Medication List No Active Prescriptions or Reported Meds Inpatient Medication List Current Inpatient Medications Medications (Trade) Dose Ordered Sig/Bharath Route Start Time Stop Time Status Last Admin Dose Admin Ioversol (Optiray 320) 100 ml UD PRN IV 06/08/17 16:15 06/12/17 16:14 Enoxaparin Sodium (Lovenox Inj) 30 mg Q24H SC 06/08/17 21:00 07/08/17 20:59 Acetaminophen (Tylenol Tab) 650 mg Q4H PRN PO 06/08/17 20:00 07/08/17 19:59 Al Hydrox/Mg Hydrox/Simethicone (Maalox Max Susp) 15 ml Q4H PRN PO 06/08/17 20:00 07/08/17 19:59 Magnesium Hydroxide (Milk Of Magnesia Susp) 30 ml Q12H PRN PO 06/08/17 20:00 07/08/17 19:59 Zolpidem Tartrate (Ambien Tab) 5 mg HSZ PRN PO 06/08/17 20:00 07/08/17 19:59 Zolpidem Tartrate (Ambien Tab) 5 mg HSZ PRN PO 06/08/17 20:00 07/08/17 19:59 Ondansetron HCl (Zofran Inj) 4 mg Q6H PRN IV 06/08/17 20:00 07/08/17 19:59 Nitroglycerin (Nitrostat Tab) 0.4 mg UD PRN SL 06/08/17 20:00 07/08/17 19:59 Polyethylene (Miralax Powder Packet) 17 gm DAILY PRN PO 06/08/17 20:00 07/08/17 19:59 Miscellaneous (Iv Fluids Completed) 1 ea PRN PRN N/A 06/08/17 20:15 06/08/18 20:14 Albuterol/ Ipratropium (Duoneb) 3 ml Q6 PRN INH 06/08/17 21:00 07/08/17 20:59 Cyanocobalamin (Vitamin B-12 Tab) 500 mcg QAM PO 06/09/17 09:00 07/09/17 08:59 06/09/17 07:46 500 MCG Description This is a 21 electrode EEG with a single channel dedicated to limited EKG. The electrodes were placed in accordance with the International 10-20 system. At the start of this recording the patient was in an awake state. Background was well organized with a symmetric mix of moderate amplitude alpha and beta frequencies. There was a symmetric moderate amplitude posterior dominant rhythm of 10 Hz that was reactive to eye opening and closure. Hyperventilation was not done. Photic stimulation at various frequencies did not produce any abnormalities. There was no state changes or sleep transients. Interpretation This is a normal awake only routine EEG. There was no electrographic seizures or epileptiform discharges. Clinical Correlation A normal EEG does not rule out epilepsy if there is a strong clinical suspicion
--- NOTE | 2017-06-09 15:33 | Cardiology Consultation ---
Cardiology Consultation Date of Consultation: Jun 09, 2017. Requesting Physician: Carina Reason for Consultation: Unresponsive Pt evaluation today including: conversation w/ patient, conversation w/ family , physical exam, chart review, lab review, review of studies, review of inpatient medication list History of Present Illness Patient is a 31-year-old woman with a history of Down syndrome who was accompanied by her mother at a shopping center yesterday. Patient was descending some stairs and was noticed by her mother to stop and bend over. She appeared to be somewhat short of breath and her mother could not get her to respond to questioning. This lasted for a few minutes and resolved. Patient at that point stated she needs to go to the bathroom and started to ascend stairs. At this point she had another similar episode which eventually resolved without intervention. According to the patient's mother she was also diaphoretic. She was brought to [facility] for evaluation. In the emergency room she responded positively to the question about chest pain but according to her mother she does not recognize the term chest. She was noted by the emergency room physician to be pointing to her head at this time. Patient's mother states she generally does not complain of palpitations or pain. She is an active individual who was accustomed to cleaning around the house and rearranging things in her room but does not perform routine exercise. She will call walks occasionally. She generally does not describe other symptoms and when she does describe symptoms often describe some incorrectly as she is not aware the meaning of several words. Her mother states she has not been sick otherwise lately. She has been eating well. She has actually lost some weight. She has not had difficulty with bowel or bladder function. Past Medical/Surgical History Down syndrome Family History No premature coronary disease Social History Smoking Status: Never Smoker History of Alcohol Use: No Patient currently lives at home with her mother Review of Systems Unable to obtain a complete review of systems as the patient could not cooperate. All Other Systems: Reviewed and Negative Allergies Coded Allergies: NO KNOWN DRUG ALLERGIES (Verified Allergy, Unknown, ., 06/08/17) Medications Current Inpatient Medications Medications (Trade) Dose Ordered Sig/Bharath Route Start Time Stop Time Status Last Admin Dose Admin Ioversol (Optiray 320) 100 ml UD PRN IV 06/08/17 16:15 06/12/17 16:14 Enoxaparin Sodium (Lovenox Inj) 30 mg Q24H SC 06/08/17 21:00 07/08/17 20:59 Acetaminophen (Tylenol Tab) 650 mg Q4H PRN PO 06/08/17 20:00 07/08/17 19:59 Al Hydrox/Mg Hydrox/Simethicone (Maalox Max Susp) 15 ml Q4H PRN PO 06/08/17 20:00 07/08/17 19:59 Magnesium Hydroxide (Milk Of Magnesia Susp) 30 ml Q12H PRN PO 06/08/17 20:00 07/08/17 19:59 Zolpidem Tartrate (Ambien Tab) 5 mg HSZ PRN PO 06/08/17 20:00 07/08/17 19:59 Zolpidem Tartrate (Ambien Tab) 5 mg HSZ PRN PO 06/08/17 20:00 07/08/17 19:59 Ondansetron HCl (Zofran Inj) 4 mg Q6H PRN IV 06/08/17 20:00 07/08/17 19:59 Nitroglycerin (Nitrostat Tab) 0.4 mg UD PRN SL 06/08/17 20:00 07/08/17 19:59 Polyethylene (Miralax Powder Packet) 17 gm DAILY PRN PO 06/08/17 20:00 07/08/17 19:59 Miscellaneous (Iv Fluids Completed) 1 ea PRN PRN N/A 06/08/17 20:15 06/08/18 20:14 Albuterol/ Ipratropium (Duoneb) 3 ml Q6 PRN INH 06/08/17 21:00 07/08/17 20:59 Cyanocobalamin (Vitamin B-12 Tab) 500 mcg QAM PO 06/09/17 09:00 07/09/17 08:59 06/09/17 07:46 500 MCG Physical Exam Vital Signs Past 12 Hours Date Time Temp Pulse Resp B/P (MAP) Pulse Ox O2 Delivery O2 Flow Rate FiO2 06/09/17 12:00 Room Air 06/09/17 11:41 36.8 78 20 111/70 (84) 94 Room Air 06/09/17 08:00 Room Air 06/09/17 07:15 36.7 74 20 104/49 (67) 97 Room Air 06/09/17 04:07 Room Air She is alert and oriented. Mood affect appear normal. She answer some questions appropriately and supplemental history is provided by her mother. HEENT: Sclerae are anicteric. Pupils are equal and reactive to light and accommodation. Extraocular movements were intact. Neuro: Cranial nerves intact. She had typical Down syndrome appearance Neck: Examination of the submandibular region did not reveal any significant lymphadenopathy. Carotids are palpable bilaterally and free of bruits on auscultation. There was no evidence of jugular venous distention. The thyroid was not enlarged. Lungs: Lungs are clear to auscultation bilaterally. There are no rales wheezes or rhonchi. She has normal respiratory effort without use of accessory muscles. There is normal pulmonary excursion. Cardiac: The rhythm was regular. S1 and S2 were normal. There are no murmurs on examination. The PMI was not markedly displaced on palpation. Abdomen: The abdomen was soft and nontender. Extremities: Patient has bilateral radial pulses that are equal in intensity. There is no evidence cyanosis or clubbing. There was no evidence of significant peripheral edema bilaterally. Skin: There are no rashes noted on examination today. Data Laboratory Results: Last 24 Hours Test 06/08/17 15:50 06/08/17 16:20 06/08/17 18:25 06/09/17 01:53 White Blood Count 5.57 K/uL Red Blood Count 4.35 M/uL Hemoglobin 15.2 g/dL Hematocrit 45.0 % Mean Corpuscular Volume 103.4 fL Mean Corpuscular Hemoglobin 34.9 pg Mean Corpuscular Hemoglobin Concent 33.8 g/dl Platelet Count 209 K/uL Mean Platelet Volume 9.6 fL Neutrophils (%) (Auto) 71.1 % Lymphocytes (%) (Auto) 20.3 % Monocytes (%) (Auto) 6.5 % Eosinophils (%) (Auto) 1.4 % Basophils (%) (Auto) 0.7 % Neutrophils # (Auto) 3.96 K/uL Lymphocytes # (Auto) 1.13 K/uL Monocytes # (Auto) 0.36 K/uL Eosinophils # (Auto) 0.08 K/uL Basophils # (Auto) 0.04 K/uL RDW Standard Deviation 51.2 fL RDW Coefficient of Variation 13.6 % Immature Granulocyte % (Auto) 0.0 % Immature Granulocyte # (Auto) 0.00 K/uL Prothrombin Time 10.2 SECONDS Prothromb Time International Ratio 1.0 Activated Partial Thromboplast Time 25.7 SECONDS Partial Thromboplastin Ratio 1.0 Sodium Level 141 mmol/L Potassium Level 4.4 mmol/L Chloride Level 106 mmol/L Carbon Dioxide Level 26 mmol/L Anion Gap 9.0 mmol/L Blood Urea Nitrogen 15 mg/dl Creatinine 0.95 mg/dl Est Creatinine Clear Calc Drug Dose 103.1 ml/min Estimated GFR () 93.2 Estimated GFR (Non- 80.4 BUN/Creatinine Ratio 15.3 Random Glucose 78 mg/dl Calcium Level 8.3 mg/dl Magnesium Level 2.0 mg/dl Total Bilirubin 0.4 mg/dl Direct Bilirubin < 0.1 mg/dl Aspartate Amino Transf (AST/SGOT) 20 U/L Alanine Aminotransferase (ALT/SGPT) 33 U/L Alkaline Phosphatase 47 U/L Creatine Kinase MB < 0.5 ng/ml Creatine Kinase MB Ratio Troponin I < 0.015 ng/ml < 0.015 ng/ml Total Protein 7.5 gm/dl Albumin 3.3 gm/dl Bedside Troponin I 0.030 ng/ml Influenza Type A Antigen Neg for Influ A Influenza Type B Antigen Neg for Influ B Vitamin B12 Level 315 pg/mL Folate 11.25 ng/mL Test 06/09/17 07:33 06/09/17 07:43 Troponin I < 0.015 ng/ml C-Reactive Protein 0.47 mg/dl Erythrocyte Sedimentation Rate 9 mm/hr Imaging: CT scan did not demonstrate any evidence of aortic dissection or intrathoracic pathology. Chest x-ray did not demonstrate any acute cardiopulmonary pathology EKG: Normal sinus rhythm with early repolarization Telemetry reviewed: Normal sinus rhythm without arrhythmia Echocardiogram performed last evening did not demonstrate any LV dysfunction. There is no significant valvular pathology. Structurally normal. Assessment & Plan 1. Unresponsive episode: There is some difficulty in evaluating the symptoms as the patient does have difficulty describing symptoms. The did appear to be an element of diaphoresis in the mother described her appearance as pale. This certainly could been a vagal reaction. She apparently felt as if she needed to go to the bathroom and perhaps have a bowel movement as well. All of the symptoms are consistent with high vagal tone. She did not actually lose consciousness or postural tone. Her evaluation date has been unremarkable. She has a normal EKG and normal echocardiogram. We have not seen any arrhythmias on her Holter monitoring. I think there is a possibility that she had a transient arrhythmia, although this is certainly speculative. I do not feel she is at high risk for more malignant rhythm problems or other cardiac issues. While we may never know the exact etiology of her symptoms, I am confident that she is at low risk for additional cardiac events. In the event she continues to have symptoms of this nature we could provide her with more long-term event monitoring to evaluate the possibility of transient arrhythmia. I would not perform any additional testing currently.
[2017-06-09 15:44] VITALS: BP 100/60; PULSE 95; TEMP 36.4; O2SAT 95
[2017-06-09] MEDS ORDERED: VTMB12 PO (17:28)
--- NOTE | 2017-06-09 17:29 | Discharge Instructions ---
Discharge Instructions Date of Service Jun 09, 2017. Admission Reason for Admission: Bronchitis, Down Syndrome Discharge Discharge Diagnosis / Problem: Near syncope due to vasovagal event Discharge Goals Goal(s): Improve function Activity Recommendations Activity Limitations: resume your previous activity . Current Hospital Diet Patient's current hospital diet: Regular Diet Discharge Diet Recommended Diet: Regular Diet Procedures Procedures Performed: chest CT Chest X ray Pending Studies Studies pending at discharge: no Work Instructions Additional Instructions: Norma was hospitalized at [facility] from 2:30pm on 06/08/17 to 6:30pm on 06/09/17. Medical Emergencies . Who to Call and When: Medical Emergencies: If at any time you feel your situation is an emergency, please call 911 immediately. . Non-Emergent Contact Non-Emergency issues call your: Primary Care Provider Call Non-Emergent contact if: you have any medication questions . . "Provider Documentation" section prepared by Zeenat Farmer. .
--- NOTE | 2017-06-09 17:40 | Discharge Summary ---
Discharge Summary Date of Service Jun 09, 2017. Discharge Summary Admission Date: Jun 08, 2017 at 20:03 Discharge Date: Jun 09, 2017 Discharge Disposition: Home Principal Diagnosis: Near syncope Problems/Secondary Diagnoses: Down's syndrome Macrocytosis - possibly due to B12 deficiency Concern for CARLEY Obesity - BMI [address] - pulmonary follow-up recommended Immunizations: Have You Had Influenza Vaccine: Unknown History of Tetanus Vaccine?: Unknown History of Pneumococcal: Unknown History of Hepatitis B Vaccine: Unknown Procedures: CHEST COMBO ANGIO DISSECTION CLINICAL HISTORY: 31 years-old Female presenting with ^Pt c/o chest pain. TECHNIQUE: Multidetector CT angiography of the chest was performed before and after the administration of intravenous contrast. 3-D volumetric and/or maximum intensity projection (MIP) images were subsequently reconstructed for review. IV contrast: 117 mL of Optiray 320. A dose lowering technique was used consistent with the principles of ALARA (as low as reasonably achievable). COMPARISON: None. CT DOSE (mGy.cm): The estimated cumulative dose is 1350.08 mGy.cm. FINDINGS: Product Marketing Director topogram: Unremarkable. Vasculature: The study is suboptimal for the assessment of the aorta secondary to respiratory and cardiac motion artifact. Precontrast imaging demonstrates no evidence of intramural hematoma. Postcontrast imaging demonstrates no evidence of dissection, penetrating ulcer, or aneurysm. Four-vessel aortic arch with patent origins of the branch vessels Allowing for timing of the contrast bolus, no gross evidence of a filling defect within the pulmonary arteries to suggest embolus. Main pulmonary artery is not enlarged. No flattening of the interventricular septum. No intracardiac filling defect. No reflux of contrast into the hepatic veins. Remaining chest: On soft tissue windows, normal thyroid and thoracic inlet. No axillary, supraclavicular, hilar, or mediastinal lymphadenopathy. Normal heart size. No pericardial or pleural effusion. Upper abdomen normal. On lung windows, allowing for extensive respiratory motion artifact, extensive mosaic attenuation at the lung bases suggests small airways disease. No focal nodule or infiltrate. Central airways patent. On bone windows, normal osseous structures. IMPRESSION: 1. Allowing for significant respiratory and cardiac motion artifact, no evidence of acute aortic injury. 2. Extensive small airways disease at the lung bases. Electronically signed by: Geraldo Mcgraw M.D. 06/08/2017 5:32 PM CHEST ONE VIEW PORTABLE CLINICAL HISTORY: 31 years-old Female presenting with Pt c/o SOB. TECHNIQUE: Portable upright AP view of the chest was obtained. COMPARISON: None. FINDINGS: Cardiomediastinal silhouette top normal in size. Bronchial wall thickening suggested. Mildly low lung volumes with hypoventilatory changes. No other focal opacity. No large effusion or pneumothorax. Osseous structures normal. Upper abdomen normal. IMPRESSION: 1. Mildly low lung volumes with hypoventilatory changes. 2. Bronchial wall thickening could suggest bronchitis or reactive airways. EEG: interpreted by Angelina Hudson DO - This is a 21 electrode EEG with a single channel dedicated to limited EKG. The electrodes were placed in accordance with the International 10-20 system. At the start of this recording the patient was in an awake state. Background was well organized with a symmetric mix of moderate amplitude alpha and beta frequencies. There was a symmetric moderate amplitude posterior dominant rhythm of 10 Hz that was reactive to eye opening and closure. Hyperventilation was not done. Photic stimulation at various frequencies did not produce any abnormalities. There was no state changes or sleep transients. Interpretation This is a normal awake only routine EEG. There was no electrographic seizures or epileptiform discharges. echocardiogram - n Conclusions -- n Left ventricular systolic function is normal. n Normal diastolic function n No evidence of dissection in the aortic root or image segments of the aortic arch n No significant valvular disease Consultations: Dr. Lock from cardiology Dr. Hudson from neurology Medication Reconciliation New Medications: Cyanocobalamin (Vitamin B-12) 500 Mcg Tab 1000 MCG PO QAM for 30 Days, #60 TAB Discharge Exam ROS Constitutional: no chills, aches, sweats or fever Respiratory: no sob,cough, sputum, or wheezing Cardiac: no chest pain, palpitations, edema, orthopnea or lightheadedness GI: no abdominal pain, nausea, vomiting, diarrhea or constipation : no dysuria or hesitancy Extremities: no joint pain or weakness Skin: no rash All other systems reviewed and negative General: no distress Eyes: normal inspection, PERLL Respiratory: chest non tender, clear to auscultation, normal breath sounds, no respiratory distress, no accessory muscle use Cardiac: regular rate and rhythm, no rub or gallop, no murmur, no edema, no jvd GI/: active bowel sounds, no abd pain or tenderness, soft, non distended Extremities: normal range of motion, normal strength, non tender Neuro/Psych: alert and oriented x 3, normal mood and affect Skin: normal color, dry Hospital Course Pt is a pleasant 31F with a PMHx of Down's Syndrome. Per mom pt was shopping in an [employer] store in [place] today. In the store on the way down the stairs the patient paused, became verbally unresponsive while standing on the 7th or 8th step and was unable to move to commands for a few minutes. There was no fall or LOC. The patient with her moms assistance eventually made it down the stairs and got some water. She had another episode in one of the bedrooms upstairs around 30 minutes after the first event. There was no LOC or falls during the second episode. Per mom, pt has been generally well. Pt lives with mom and mom is around patient 24 hours of the day. There have been no coughs, fevers, chills, chest pains or other pains recently. Mom said that the pt had an episode like this approximately one year ago. At that time she took her daughter to the [facility] and they found that she was hypoxic. Patient denies any issues however per mom pt is an unreliable historian because pt's grandmother recently in the hospital and as a result the patient will never present a health complaint to a physician for fear that she may succumb to a similar fate. Nonetheless, the patient states that she feels fine. Unresponsive Episode x 2 Pt appears to be back at baseline. consulted neurology - EEG performed, no s/s of seizures, they do not feel this event has a neuro etiology Pt did get an echocardiogram which came back normal EKG reviewed and was normal. Troponins negative No events on telemetry monitoring UA ordered and pending. Cardiology consulted - per their note: The did appear to be an element of diaphoresis in the mother described her appearance as pale. This certainly could been a vagal reaction. She apparently felt as if she needed to go to the bathroom and perhaps have a bowel movement as well. All of the symptoms are consistent with high vagal tone. She did not actually lose consciousness or postural tone. Her evaluation date has been unremarkable. She has a normal EKG and normal echocardiogram. We have not seen any arrhythmias on her Holter monitoring. I think there is a possibility that she had a transient arrhythmia, although this is certainly speculative. I do not feel she is at high risk for more malignant rhythm problems or other cardiac issues. While we may never know the exact etiology of her symptoms, I am confident that she is at low risk for additional cardiac events. In the event she continues to have symptoms of this nature we could provide her with more long-term event monitoring to evaluate the possibility of transient arrhythmia. I would not perform any additional testing currently. ?Bronchitis No White cell count. Afebrile. No wheezing on exam. CT suggestive of bronchitis. No further intervention Elevated MCV B12 low, MCV high - supplement Suggest patient see pulmonology outpatient for sleep study to rule out sleep apnea Attending Attestation - Pt seen/examined, chart reviewed, discharge care plan d/w LINDA Farmer. I agree w/ the rucker components of her documentation. 31yo female with Down's syndrome who presented with at least 2 episodes of near- syncope. Each episode was associated with pallor, diaphoresis, and alteration in mental status but she never lost consciousness. Symptoms improved with sitting down. Extensive w/u at [facility] failed to reveal specific etiology. Seen by neuro & cardiology - see Ms. Farmer's notation for additional information. ? vagal etiology ? It had been suggested in the past to the pt's mother that hypoxia was the culprit (she had been admitted to an outside hospital in the past for similar episode) but she had normal o2 saturations her entire stay. O2 with walking was also normal (lowest o2 sat w/ walking 95%). With that said, in light of abnormal chest CT, pulmonary f/u advised. Discharge exam - gen - typical Down's features neck - no JVD mouth - macroglossia heart - RRR, s1, s2 lungs - CTA b/l abd - soft ext - no edema neuro - strength 5/5 x 4 exts Mack Lim MD Total Time Spent: Greater than 30 minutes This includes examination of the patient, discharge planning, medication reconciliation, and communication with other providers. Discharge Instructions Please refer to the electronic Patient Visit Report (Discharge Instructions) for additional information. Follow-Up Dr. Orlin Rm on FridayJune 18 at 8:[address] Davon Mario on June 19 at 2:00 pm. Additional Copies To Davon Mario M.D. ([place]); Orlin Rm M.D.
[2017-06-09 19:16] VITALS: BP 100/60; PULSE 95; TEMP 36.4; O2SAT 95
== END 2017-06-09 19:20 | disposition home or self-care (01) ==
LOC: C.EDB 14:21 → C.2E 20:03 → ENRESERV 20:10
PROVIDERS: ADMIT Hospitalist; ATTEND Internal Medicine
DX: R55 Syncope and collapse (principal); Q90.9 Down syndrome, unspecified; D75.89 Other specified diseases of blood and blood-forming organs; E66.9 Obesity, unspecified; Z68.41 Body mass index [BMI] 40.0-44.9, adult